=== PATIENT | male | born 1980 | race Two or more races ===

== ENCOUNTER 2020-03-13 19:29 | Emergency (ER) | payer MEDICARE, MEDICAID ==
[~2020-03-13] VITALS: Ht 180.3 cm; Wt 227.0 kg
[2020-03-13 19:46] VITALS: BP 103/63
--- NOTE | 2020-03-13 20:09 | NUR ---
Pt left arm he states is painful when twisting at the elbow secondary to fall from standing. Denies any other injury, hitting his head or any LOC. Pt CSM intact.
[2020-03-13] MEDS ORDERED: ibuprofen 200mg tablet PO ONE (20:25)
[2020-03-13] MEDS ORDERED: IBUP-1985 PO (21:07)
== END 2020-03-13 22:00 | disposition home or self-care (01) ==
LOC: ER 19:30
DX: S52.125A Nondisplaced fracture of head of left radius, initial encounter for closed fracture (principal); F41.9 Anxiety disorder, unspecified; Z88.8 Allergy status to other drugs, medicaments and biological substances; Z79.899 Other long term (current) drug therapy; W18.39XA Other fall on same level, initial encounter; Y93.89 Activity, other specified; Y92.89 Other specified places as the place of occurrence of the external cause; Y99.8 Other external cause status
CPT/HCPCS: 29105; 73080; 99283